=== PATIENT | male | born 2000 | race African-American/Black ===

== ENCOUNTER 2019-01-17 00:28 | Emergency (ER) | payer MEDICAID ==
[~2019-01-17] VITALS: Ht 175.3 cm; Wt 61.2 kg
[2019-01-17 01:00] VITALS: BP 105/67
--- NOTE | 2019-01-17 01:00 | NUR ---
ED Nurse Note: pt walked in c/o fever and headache and generalized body ache for couple of days, pt's mother reports pt's fever was 107 at home, currently 99.1 in triage, will cont monitor. vss. no sx distress, resp even and unlabored on RA.
--- NOTE | 2019-01-17 01:08 | Emergency Room Report ---
History of Present Illness General Chief Complaint: Headache Source: Family Member Present Illness HPI 18-year-old male, no past medical history, no surgical history presents with sore throat, fever x1 day, one episode of diarrhea, alleviated with Tylenol, no aggravating factors, reduced appetite, no nausea, no vomiting, no cough, no congestion, patient also endorses a headache, patient had Tylenol prior to coming into the emergency room, patient presents for evaluation. Allergies: Coded Allergies: No Known Allergies (Unverified , 01/17/19) Patient History Past Medical History: see triage record Social History: Reports: alcohol use - Social Reviewed Nursing Documentation: PMH: Agreed; PSxH: Agreed Nursing Documentation-PMH Past Medical History: No Stated History Review of Systems Constitutional: Reports: chills, fever Eye: Denies: blurred vision, double vision ENT: Reports: throat pain; Denies: nasal discharge Respiratory: Denies: cough, shortness of breath Cardiovascular: Denies: chest pain, palpitations Gastrointestinal: Reports: abdominal pain, diarrhea; Denies: nausea, vomiting Genitourinary: Denies: dysuria, pain Musculoskeletal: Denies: back pain, muscle pain Skin: Denies: rash, lesions Neurological: Denies: headache, focal weakness Hematologic/Lymphatic: Denies: easy bleeding, easy bruising All Other Systems: negative except mentioned in HPI Physical Exam Vital Signs Date Time Temp Pulse Resp B/P (MAP) Pulse Ox O2 Delivery O2 Flow Rate FiO2 01/17/19 00:41 99.1 96 18 105/67 (80) 95 Room Air Sp02 EP Interpretation: reviewed, normal General Appearance: well appearing, no apparent distress, alert Head: normocephalic, atraumatic Eyes: bilateral eye PERRL, bilateral eye EOMI ENT: uvula midline, dry mucus membranes Neck: supple, thyroid normal, supple/symm/no masses Respiratory: lungs clear, no respiratory distress, no retraction, no accessory muscle use Cardiovascular #1: normal peripheral pulses, regular rate, rhythm, no edema, no gallop, no murmur Gastrointestinal: non tender, soft, no guarding, no rebound Musculoskeletal: normal inspection Neurologic: alert, oriented x3 Psychiatric: mood/affect normal Skin: no rash, warm/dry Medical Decision Making Diagnostic Impression: Primary Impression: Viral syndrome ER Course 18-year-old male presents most likely with a viral syndrome, no evidence of meningismus, no signs of encephalitis, patient has supple neck, no acute distress, patient was on his cell phone comfortable, strict return precautions were discussed, follow-up with PCP Last Vital Signs Date Time Temp Pulse Resp B/P (MAP) Pulse Ox O2 Delivery O2 Flow Rate FiO2 01/17/19 00:41 99.1 96 18 105/67 (80) 95 Room Air Disposition: HOME, SELF-CARE Condition: Stable Referrals: [facility] Departure Forms: Return to School Return to School On: Jan 22, 2019 Patient Instructions: Pharyngitis, [id number], Rehydration, Adult, Viral Respiratory Infection, [id number] Additional Instructions: The patient was provided with discharge instructions, notified to follow-up with a primary care doctor and or specialist in the next 24-48 hours, and to return to the ED if they have worsening of their symptoms. Please note that this report is being documented using DRAGON technology. This can lead to erroneous entry secondary to incorrect interpretation by the dictating instrument. Vargas Stewart MD Jan 17, 2019 01:08
[2019-01-17 01:16] VITALS: BP 120/59
--- NOTE | 2019-01-17 01:16 | NUR ---
ED Nurse Note: pt cleared to be d/c per ERMD, pt discharge and aftercare instruction provided, pt advised to follow up with pcp or return to ed, education done via discussion/handout, pt accompanied by mother, left w/ all belongings. pt verbalized understanding.
== END 2019-01-17 01:17 | disposition home or self-care (01) ==
LOC: EMR 00:45
DX: B34.9 Viral infection, unspecified (principal)
CPT/HCPCS: 99281